=== PATIENT | male | born 1995 | race Caucasian/White ===

== ENCOUNTER 2016-07-23 15:43 | Emergency (ER) | payer OTHER ==
[~2016-07-23] VITALS: Ht 182.9 cm; Wt 86.1 kg
[2016-07-23 15:46] VITALS: TEMP 36.5; Ht 182.9 cm; Wt 86.1 kg
[2016-07-23] MEDS ORDERED: VNTHFA/IN INH (16:05)
[2016-07-23] MEDS ORDERED: FLUT0.15 (16:05)
[2016-07-23 16:21] LABS: HEMATOCRIT 42.6 % (42-52); MEAN CELL VOLUME 91.4 fL (80-100); MEAN CORPUSCULAR HEMOGLOBIN 31.8 pg (25-34); MEAN CORPUSCULAR HGB CONC 34.7 g/dl (32-36); MEAN PLATELET VOLUME 9.6 fL (7.4-10.4); PLATELET COUNT 217 K/uL (130-400); RED BLOOD COUNT 4.66 M/uL (4.7-6.1)
--- NOTE | 2016-07-23 16:27 | DIAGNOSTIC IMAGING REPORT ---
CHEST ONE VIEW PORTABLE CLINICAL HISTORY: CHEST PAIN COMPARISON STUDY: No previous studies for comparison. FINDINGS: The bones soft tissues and hemidiaphragms are normal. The cardiomediastinal silhouette is normal. The lungs are clear. The pulmonary vasculature is normal. IMPRESSION: Negative chest. Electronically signed by: Bhupinder Barry M.D. 07/23/2016 4:26 PM Dictated Date/Time: 07/23/2016 4:26 PM
[2016-07-23 16:41] VITALS: O2SAT 98
[2016-07-23 16:45] LABS: BASO ABS # 0.09 K/uL (0-0.2); BASOPHIL % 1.8 % (0-2); COMPLETE YES; EOSINOPHIL % 2.7 %; LYMPH ABS # 1.39 K/uL (1.2-3.4); LYMPHOCYTE % 28.3 %; VARIANT LYM ABS # 0.96 K/uL; VARIANT LYMPHOCYTE % 19.5 %
[2016-07-23 16:52] LABS: BLOOD UREA NITROGEN 14 mg/dl (7-18); BUN/CREATININE RATIO 14.2 (10-20); CALCIUM 9.3 mg/dl (8.5-10.1); CARBON DIOXIDE 31 mmol/L (21-32); CHLORIDE 104 mmol/L (98-107); GLUCOSE 75 mg/dl (70-99); SODIUM 140 mmol/L (136-145)
[2016-07-23 16:57] LABS: CKMB/CK RATIO 0.8 (0-3.0)
[2016-07-23 17:20] LABS: BENZODIAZEPINE, URINE NEG (NEG); COCAINE,URINE NEG (NEG); PHENCYCLIDINE, URINE NEG (NEG)
[2016-07-23 17:32] VITALS: BP 136/77; PULSE 69; O2SAT 100
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
== END 2016-07-23 17:33 | disposition home or self-care (01) ==
LOC: C.EDB 15:46 → C.EDC 17:33
DX: T75.4XXA Electrocution, initial encounter (principal); W86.8XXA Exposure to other electric current, initial encounter; Y99.0 Civilian activity done for income or pay; Z79.899 Other long term (current) drug therapy; Y92.89 Other specified places as the place of occurrence of the external cause